=== PATIENT | male | born 1945 | race Caucasian/White ===

== ENCOUNTER 2018-03-23 09:50 | Emergency (ER) | payer MEDICARE, OTHER ==
[~2018-03-23] VITALS: Ht 180.3 cm; Wt 100.0 kg
[2018-03-23] MEDS ORDERED: morphine 4 MG/ML inj SYRINge IV ONE (10:45)
[2018-03-23] MEDS ORDERED: ondansetron/PF 4mg/2ml inj IV ONE ×2 (10:45)
[2018-03-23 10:57] LABS: BASOPHILS # (AUTO) 0.1 X10'3 (0-0.2); BASOPHILS % (AUTO) 0.9 % (0-1); EOSINOPHILS # (AUTO) 0.5 X10'3 (0-0.9); HEMATOCRIT 41.6 % (42.0-52.0); HEMOGLOBIN 14.4 g/dl (14.0-17.9); LYMPHOCYTES # (AUTO) 1.5 X10'3 (1.1-4.8); LYMPHOCYTES % (AUTO) 23.1 % (21-51); MEAN CORPUSCULAR HGB CONC 34.5 % (33.0-36.5); MEAN CORPUSCULAR VOLUME 92.8 FL (78-98); MEAN PLATELET VOLUME 8.1 FL (7.4-10.4); MONOCYTES # (AUTO) 0.8 X10'3 (0-0.9); MONOCYTES % (AUTO) 11.4 % (2-12); NEUTROPHILS # (AUTO) 3.8 X10'3 (1.8-7.7); NEUTROPHILS % (AUTO) 57.6 % (42-75); PLATELET COUNT 216 X10'3 (140-440); RED BLOOD COUNT 4.49 X10'6 (4.70-6.10); RED CELL DISTRIBUTION WIDTH 13.9 % (11.5-14.5); WHITE BLOOD COUNT 6.6 X10'3 (4.5-11.0)
[2018-03-23 11:08] LABS: ALANINE AMINOTRANSFERASE 49 U/L (12-78); ALBUMIN 4.1 G/DL (3.4-5.0); ALBUMIN/GLOBULIN RATIO 1.2 (1.1-1.5); ALKALINE PHOSPHATASE 62 IU/L (46-116); ANION GAP 13 (8-16); ASPARTATE AMINO TRANSFERASE 34 U/L (10-37); BILIRUBIN,TOTAL 0.5 MG/DL (0.1-1.0); BLOOD UREA NITROGEN 18 MG/DL (7-18); BUN/CREATININE RATIO 22.2 (5.4-32.0); CALCIUM 8.9 MG/DL (8.5-10.1); CHLORIDE 99 MMOL/L (99-107); CREATININE 0.81 MG/DL (0.60-1.10); GLUCOSE 153 MG/DL (70-104); LIPASE 157 U/L (73-393); POTASSIUM 4.3 MMOL/L (3.5-5.1); SODIUM 135 MMOL/L (135-145); TOTAL CARBON DIOXIDE 23.2 MMOL/L (24-32); TOTAL PROTEIN 7.6 G/DL (6.4-8.2); eGFR > 90 ML/MIN
[2018-03-23 11:17] VITALS: BP 137/90
[2018-03-23 11:18] LABS: CLARITY,URINE CLEAR (Clear); COLOR,URINE YELLOW (Yellow); GLUCOSE, URINE NEGATIVE (Neg); KETONES,URINE TRACE mg/dl (Neg); LEUKOCYTE ESTERASE ,URINE NEGATIVE (Neg); NITRITES, URINE NEGATIVE (Neg); OCCULT BLOOD,URINE NEGATIVE (Neg); PH,URINE 6.5 (4.8-8.0); PROTEIN,URINE NEGATIVE (Neg); UROBILINOGEN,URINE 0.2 E.U/dL (0.2-1.0)
[2018-03-23 11:27] LABS: UA COLLECTION TYPE CLN CATCH MIDSTREAM
[2018-03-23] MEDS ORDERED: ALBU8HFA PO (11:33)
[2018-03-23] MEDS ORDERED: DOXY100C43 PO (11:33)
[2018-03-23] MEDS ORDERED: HYDR-3965 PO (11:33)
[2018-03-23] MEDS ORDERED: ONDA4TAB6 PO (11:33)
[2018-03-23] MEDS ORDERED: PRED20TA PO (11:33)
== END 2018-03-23 11:55 | disposition home or self-care (01) ==
LOC: ER 09:50
DX: J20.9 Acute bronchitis, unspecified (principal); M94.0 Chondrocostal junction syndrome [Tietze]; J44.9 Chronic obstructive pulmonary disease, unspecified; I10 Essential (primary) hypertension; E11.9 Type 2 diabetes mellitus without complications; Z98.890 Other specified postprocedural states; Z88.0 Allergy status to penicillin; Z88.2 Allergy status to sulfonamides; Z79.899 Other long term (current) drug therapy
CPT/HCPCS: 36415; 71046; 74176; 80053; 81003; 83690; 84484; 85025; 93005; 96374; 96375; 99284; J2270; J2405

== ENCOUNTER 2018-10-04 06:47 | Inpatient (IN) | payer MEDICARE, OTHER ==
[~2018-10-04] VITALS: Ht 182.9 cm; Wt 102.7 kg
[~2018-10-04 06:47] MED LIST: ONDA4TAB6 PO
[2018-10-04] MEDS ORDERED: normal saline 1000ML IV soln IV ONE (07:10)
[2018-10-04] MEDS ORDERED: ipratropium/albuterol 3ml nebule NEB ONE (07:50)
[2018-10-04] MEDS ORDERED: albuterol 2.5 MG/3 ML nebule NEB ONE (07:50)
[2018-10-04 08:02] LABS: BASOPHILS % (AUTO) 0.4 % (0-1); EOSINOPHILS % (AUTO) 0.5 % (0-6); HEMATOCRIT 43.8 % (42.0-52.0); HEMOGLOBIN 15.1 g/dl (14.0-17.9); LYMPHOCYTES # (AUTO) 1.1 X10'3 (1.1-4.8); MEAN CORPUSCULAR HEMOGLOBIN 33.1 PG (27.0-31.0); MEAN CORPUSCULAR HGB CONC 34.6 g/dL (33.0-36.5); MEAN CORPUSCULAR VOLUME 95.7 FL (78-98); MEAN PLATELET VOLUME 8.5 FL (7.4-10.4); MONOCYTES # (AUTO) 0.8 X10'3 (0-0.9); MONOCYTES % (AUTO) 8.6 % (2-12); NEUTROPHILS # (AUTO) 7.7 X10'3 (1.8-7.7); NEUTROPHILS % (AUTO) 79.5 % (42-75); PLATELET COUNT 232 X10'3 (140-440); RED BLOOD COUNT 4.58 X10'6 (4.70-6.10); RED CELL DISTRIBUTION WIDTH 13.3 % (11.5-14.5); WHITE BLOOD COUNT 9.7 X10'3 (4.5-11.0)
[2018-10-04 08:10] LABS: ALANINE AMINOTRANSFERASE 38 U/L (12-78); ALBUMIN 3.8 G/DL (3.4-5.0); ALBUMIN/GLOBULIN RATIO 0.8 (1.1-1.5); ALKALINE PHOSPHATASE 64 IU/L (46-116); ANION GAP 17 (8-16); ASPARTATE AMINO TRANSFERASE 21 U/L (10-37); BILIRUBIN,TOTAL 0.8 MG/DL (0.1-1.0); BLOOD UREA NITROGEN 12 MG/DL (7-18); BUN/CREATININE RATIO 10.9 (5.4-32.0); CALCIUM 9.2 MG/DL (8.5-10.1); CHLORIDE 94 MMOL/L (99-107); GLUCOSE 179 MG/DL (70-104); SODIUM 132 MMOL/L (135-145); TOTAL CARBON DIOXIDE 21.1 MMOL/L (24-32); TOTAL PROTEIN 8.3 G/DL (6.4-8.2); eGFR 66 ML/MIN
[2018-10-04 09:06] LABS: CLARITY,URINE SLIGHTLY CLOUDY (Clear); COLOR,URINE YELLOW (Yellow); GLUCOSE, URINE NEGATIVE (Neg); KETONES,URINE TRACE mg/dl (Neg); LEUKOCYTE ESTERASE ,URINE NEGATIVE (Neg); NITRITES, URINE NEGATIVE (Neg); OCCULT BLOOD,URINE NEGATIVE (Neg); PH,URINE 5.5 (4.8-8.0); PROTEIN,URINE 30 mg/dl (Neg); UROBILINOGEN,URINE 0.2 E.U/dL (0.2-1.0)
[2018-10-04 09:09] LABS: UA COLLECTION TYPE URINAL
[2018-10-04] MEDS ORDERED: levoFLOXACIN-Levaquin 750MG/D5 150 ML IV ONE (09:15)
[2018-10-04] MEDS ORDERED: HYDROcodone/acetaminophen 10/325mg tab PO PRN (09:20)
[2018-10-04] MEDS ORDERED: bisacodyl 10mg suppository rectal RC PRN (09:20)
[2018-10-04] MEDS ORDERED: ondansetron/PF 4mg/2ml inj IV PRN (09:20)
[2018-10-04] MEDS ORDERED: acetaminophen 650mg rectal suppository RC PRN (09:20)
[2018-10-04] MEDS ORDERED: magnesium 4gm in 100ml NS 100 ML IV PRN (09:20)
[2018-10-04] MEDS ORDERED: magnesium hydroxide 30ml (MOM) UD suspension PO PRN (09:20)
[2018-10-04] MEDS ORDERED: ipratropium/albuterol 3ml nebule NEB PRN (09:20)
[2018-10-04] MEDS ORDERED: potassium Cl 20 mEq SR tablet PO PRN ×2 (09:20)
[2018-10-04] MEDS ORDERED: acetaminophen 325mg tablet PO PRN ×2 (09:20)
[2018-10-04] MEDS ORDERED: magnesium Cl slow-release 64mg tablet PO PRN (09:20)
[2018-10-04] MEDS ORDERED: potassium CL 10mEq/100ml bag 100 ML IV PRN ×2 (09:20)
[2018-10-04] MEDS ORDERED: HYDROcodone/acetaminophen 5mg/325mg tablet PO PRN (09:20)
[2018-10-04] MEDS ORDERED: magnesium 2GM in 50ml NS 50 ML IV PRN (09:20)
[2018-10-04] MEDS ORDERED: morphine 2 MG/ML inj. syringe IV PRN ×2 (09:20)
[2018-10-04] MEDS: K and/or MAG REPLACEMENT MC SCH (09:20)
[2018-10-04] MEDS ORDERED: diphenhydrAMINE 25mg capsule PO PRN (09:20)
[2018-10-04] MEDS ORDERED: mag hydrox/Alum hydrox/simeth 30ml oral suspension PO PRN (09:20)
[2018-10-04 09:30] LABS: BACTERIA,URINE NONE SEEN /HPF (Neg); HYALINE CASTS 0-3 /LPF (NEGATIVE); MUCUS STRANDS MANY /LPF (Neg); RBC,URINE NONE SEEN /HPF (0-2); RENAL CELLS, URINE FEW /HPF; SQUAMOUS EPITHELIAL CELL,UR FEW /LPF (FEW); TRANSITIONAL EPI CELLS,URINE FEW /HPF; WBC,URINE 0-4 /HPF (0-4)
[2018-10-04 09:31] LABS: COARSE GRANULAR CAST 0-3 /LPF (NEGATIVE); FINE GRANULAR CAST 0-3 /LPF (NEGATIVE)
--- NOTE | 2018-10-04 09:35 | NUR ---
MD AWARE OF OCCASSIONAL PVC AND WIDENING OF THE QRS WAVE.
[2018-10-04 09:52] LABS: HEMOGLOBIN A1C 6.6 % (4.5-6.2)
[2018-10-04] MEDS: normal saline 1000ml 1,000 ML IV SCH ×2 (10:04→19:42)
[2018-10-04] MEDS ORDERED: iohexol 350MG/ML 100ml bottle IV ONE (10:16)
--- NOTE | 2018-10-04 10:46 | NUR ---
Patient in room 349 B. I have received report from Sara, ED RN and had the opportunity to ask questions and assume patient care.
[2018-10-04] MEDS ORDERED: methylPREDNISolone sod succ 125mg/2ml vial IV ONE (11:10)
[2018-10-04 12:13] VITALS: BP 165/93
[2018-10-04] MEDS ORDERED: LORA0.5T PO (14:09)
[2018-10-04] MEDS ORDERED: LISI1TAB28 PO (14:09)
[2018-10-04] MEDS ORDERED: ROSU40TA22 PO (14:09)
[2018-10-04] MEDS ORDERED: METF-438 PO (14:11)
[2018-10-04] MEDS ORDERED: AMLO2.5T5 PO (14:11)
[2018-10-04] MEDS ORDERED: FLUT1BLS4 INH (14:11)
[2018-10-04] MEDS ORDERED: ALBU8.5H8 INH (14:15)
[2018-10-04] MEDS ORDERED: EXEN2AUT SQ (14:15)
[2018-10-04] MEDS ORDERED: UBID100C16 PO (14:16)
[2018-10-04] MEDS ORDERED: [UNRECOGNIZED DRUG - CODE] PO (14:17)
--- NOTE | 2018-10-04 18:29 | NUR ---
Problems reprioritized. Patient report given, questions answered & plan of care reviewed with Danielle Santos RN.
--- NOTE | 2018-10-04 18:30 | NUR ---
Patient in room [facility] 349. I have received report from MAX HEDRICK and had the opportunity to ask questions and assume patient care.
[2018-10-04 20:00] VITALS: BP 132/66
[2018-10-04] MEDS: lactobacillus rhamnosus 10,000 MMU CELLS/CAPSULE PO SCH (20:28)
[2018-10-04] MEDS: heparin, porcine 5000 units/ml vial SQ SCH (20:30)
[2018-10-04] MEDS ORDERED: temazepam 15mg capsule PO PRN (21:00)
[2018-10-04] MEDS ORDERED: glucagon, human recombinant 1mg kit SUBCUT PRN (21:40)
[2018-10-04] MEDS ORDERED: dextrose 50%-water 50ml dispensing syringe IV PRN ×2 (21:40)
[2018-10-04] MEDS ORDERED: dextrose ORAL solution 15 GM/59 ML bottle PO PRN ×2 (21:40)
[2018-10-04] MEDS ORDERED: MESSAGE TO PHARMACY PO ONE (21:40)
[2018-10-04] MEDS ORDERED: insulin glargine (Lantus) pen - multi-dose SQ SCH (22:00)
[2018-10-04] MEDS: insulin Lispro (HumaLOG) vial - multi-dose SQ SCH (22:33)
[2018-10-04] MEDS ORDERED: LORazepam 0.5 MG tablet PO PRN (23:15)
[2018-10-04] MEDS ORDERED: atorvastatin 10mg tablet PO SCH ×2 (23:15→23:18)
[2018-10-05] VITALS: BP 131/87
[2018-10-05] MEDS ORDERED: albuterol 2.5 MG/3 ML nebule NEB PRN (02:00)
[2018-10-05] MEDS: normal saline 1000ml 1,000 ML IV SCH (05:19)
[2018-10-05 05:46] LABS: BASOPHILS % (AUTO) 0.1 % (0-1); EOSINOPHILS % (AUTO) 0 % (0-6); HEMATOCRIT 39.4 % (42.0-52.0); HEMOGLOBIN 13.5 g/dl (14.0-17.9); LYMPHOCYTES # (AUTO) 0.6 X10'3 (1.1-4.8); LYMPHOCYTES % (AUTO) 10.4 % (21-51); MEAN CORPUSCULAR HEMOGLOBIN 32.3 PG (27.0-31.0); MEAN CORPUSCULAR HGB CONC 34.2 g/dL (33.0-36.5); MEAN CORPUSCULAR VOLUME 94.4 FL (78-98); MEAN PLATELET VOLUME 8.4 FL (7.4-10.4); MONOCYTES # (AUTO) 0.5 X10'3 (0-0.9); MONOCYTES % (AUTO) 8.8 % (2-12); NEUTROPHILS # (AUTO) 4.3 X10'3 (1.8-7.7); NEUTROPHILS % (AUTO) 80.7 % (42-75); PLATELET COUNT 206 X10'3 (140-440); RED BLOOD COUNT 4.17 X10'6 (4.70-6.10); RED CELL DISTRIBUTION WIDTH 13.6 % (11.5-14.5); WHITE BLOOD COUNT 5.4 X10'3 (4.5-11.0)
[2018-10-05 06:10] LABS: ALANINE AMINOTRANSFERASE 30 U/L (12-78); ALBUMIN 3.1 G/DL (3.4-5.0); ALBUMIN/GLOBULIN RATIO 0.8 (1.1-1.5); ALKALINE PHOSPHATASE 51 IU/L (46-116); ANION GAP 10 (8-16); ASPARTATE AMINO TRANSFERASE 21 U/L (10-37); BILIRUBIN,TOTAL 0.4 MG/DL (0.1-1.0); BLOOD UREA NITROGEN 11 MG/DL (7-18); BUN/CREATININE RATIO 12.1 (5.4-32.0); CALCIUM 8.1 MG/DL (8.5-10.1); CHLORIDE 102 MMOL/L (99-107); CHOLESTEROL 101 MG/DL (0-200); CREATININE 0.91 MG/DL (0.60-1.10); GLUCOSE 184 MG/DL (70-104); HDL CHOLESTEROL 50 MG/DL (35-60); LDL CHOLESTEROL 41 MG/DL (50-100); MAGNESIUM 1.7 MG/DL (1.5-2.4); PHOSPHORUS 2.2 MG/DL (2.3-4.5); POTASSIUM 3.8 MMOL/L (3.5-5.1); SODIUM 136 MMOL/L (135-145); TOTAL CARBON DIOXIDE 24.2 MMOL/L (24-32); TOTAL PROTEIN 7.2 G/DL (6.4-8.2); TRIGLYCERIDES 61 MG/DL (20-135); eGFR 82 ML/MIN
--- NOTE | 2018-10-05 06:30 | NUR ---
Problems reprioritized. Patient report given, questions answered & plan of care reviewed with MAX HEDRICK.
[2018-10-05 07:00] VITALS: BP 140/84
[2018-10-05] MEDS: K and/or MAG REPLACEMENT MC SCH (07:05)
--- NOTE | 2018-10-05 07:30 | NUR ---
Returned from [facility] and went into the room while [facility] nurse was finishing med pass for this patient. Patient was stating that he was confused as to why we were giving him Atrovastatin instead of his normal cholesterol medication. Patient was informed that the medication is in the same family but that Atrovastatin is what we stock here. Patient said "okay whatever, I just don't want to take something that is a crappy version of what I take." Patient also refused the Heparin SQ because he said that he is up and moving in his room and he doesn't need it. Patient was also refusing to take insulin because he felt we are pumping him full of medications that he doesn't need. Patient was educated by myself and the [facility] nurse about our diabetic protocol and how it works. He was educated about the fact that we watch his sugars and the amount of carbs that he eat and base how much insulin that we give him on that. Patient said no to insulin. Patient was told that he is more than welcome to refuse medications and was also educated on the risks of having high blood glucose. Patient stated that he understood. About 10 minutes later patient hit his call light and upon asking what he needed. Patient stated that he had an epiphany and would like to take his insulin now. Patient was covered for his blood glucose.
--- NOTE | 2018-10-05 07:50 | NUR ---
Discussed with patient about ambulation and the importance of being up and moving especially with pneumonia. Patient stated that he is moving around room just fine but refuses to walk around in the unit because, "there are way too many germs in the hospital, I am not going to walk around out there just waiting to catch a worse germ." Patient also stated that he refuses to use our toilet. I discussed with patient that we sanitize the rooms and restrooms. Patient stated, "I don't care how much you clean these rooms, I am not going to use that dirty toilet". I asked the patient what he would like to do in the event of having a bowel movement. Patient stated, "I will hold it! I am not pooping here!". I expressed with the patient that since he has not had a bowel movement since the 01 of October that more than likely we are going to want to ensure that you are able to have one. Patient stated, "that's not true, I didn't have surgery. You can't lie to me". patient was informed that we can discuss with MD.
[2018-10-05] MEDS ORDERED: lisinopril 20mg tablet PO SCH (08:00)
[2018-10-05] MEDS ORDERED: VILANTER IH SCH (08:00)
[2018-10-05] MEDS ORDERED: amLODIPine 2.5mg tablet PO SCH (08:00)
[2018-10-05] MEDS ORDERED: multivitamins, therapeutics tablet PO SCH (08:00)
[2018-10-05] MEDS ORDERED: non-formulary drug (Ubidecarenone (Coq-10) 300 MG) PO SCH (08:00)
[2018-10-05] MEDS ORDERED: FLUTICASONE IH SCH (08:00)
[2018-10-05] MEDS ORDERED: levoFLOXACIN-Levaquin 750MG/D5 150 ML IV SCH (08:00)
[2018-10-05] MEDS: heparin, porcine 5000 units/ml vial SQ SCH (08:00)
[2018-10-05] MEDS ORDERED: UMECLIDIN IH SCH (08:00)
[2018-10-05] MEDS: lactobacillus rhamnosus 10,000 MMU CELLS/CAPSULE PO SCH (08:23)
[2018-10-05] MEDS: insulin Lispro (HumaLOG) vial - multi-dose SQ SCH (08:40)
--- NOTE | 2018-10-05 09:34 | NUR ---
DM consult: Patient's A1c is 6.6; DM ed not warranted at this time. Will continue to follow. Addendum: 10/05/18 at [address] Amended: Links added.
[2018-10-05 11:00] VITALS: BP 121/83
[2018-10-05] MEDS ORDERED: LEVO750T46 PO (12:13)
--- NOTE | 2018-10-05 12:52 | NUR ---
Patient discharge home. Patient left with spouse and taken from unit via wheelchair with x1 staff. Patient alert, oriented and in no apparent distress at time of discharge. Patient PIV removed with cannula intact. Prescription for abx was called into [facility] on [facility] and patient plans on picking up the med on his way home. Patient took all belongings with him. Patient stated an understanding of the discharge instructions.
[2018-10-05] MEDS ORDERED: insulin glargine (Lantus) pen - multi-dose SQ SCH (21:00)
--- NOTE | 2018-10-09 10:16 | NUR ---
Patient called asking for the RN Genevieve regarding his discharge medication. Informed patient that she is not here today. He stated that he was instructed by "the nurse or the doctor, but I can't remember who told me to not take the levofloxacin with my cholesterol pill. Can you enlighten me with this?" Let patient know that I would have to look up if there was any notes regarding his discharge instructions stating reason why not to take cholesterol med and antibiotic. Patient agreed and was put on hold. research and insights executiveApryl notified about patient calling and his question. Apryl, research and insights executive and I were not able to find information as to why patient is to not cholesterol pill and antibiotic together. Instructed patient to call his pharmacist or
== END 2018-10-05 12:58 | disposition home or self-care (01) | DRG 193 ==
LOC: ER 06:48 → SUR 3N 11:52 → CMPBEDREQ 19:45
PROVIDERS: ADMIT Family Medicine; ATTEND Family Medicine
PROC: B32T1ZZ Computerized Tomography (CT Scan) of Left Pulmonary Artery using Low Osmolar Contrast (ICD-10-PCS; principal; 2018-10-04)
PROC: B3201ZZ Computerized Tomography (CT Scan) of Thoracic Aorta using Low Osmolar Contrast (ICD-10-PCS; 2018-10-04)
PROC: B32S1ZZ Computerized Tomography (CT Scan) of Right Pulmonary Artery using Low Osmolar Contrast (ICD-10-PCS; 2018-10-04)
DX: J18.9 Pneumonia, unspecified organism (principal); J96.01 Acute respiratory failure with hypoxia; J44.1 Chronic obstructive pulmonary disease with (acute) exacerbation; J44.0 Chronic obstructive pulmonary disease with (acute) lower respiratory infection; E11.9 Type 2 diabetes mellitus without complications; E78.5 Hyperlipidemia, unspecified; I10 Essential (primary) hypertension; Z80.3 Family history of malignant neoplasm of breast; Z82.5 Family history of asthma and other chronic lower respiratory diseases; Z88.0 Allergy status to penicillin; Z88.2 Allergy status to sulfonamides; Z87.891 Personal history of nicotine dependence; Z79.899 Other long term (current) drug therapy
CPT/HCPCS: 36415; 71045; 71275; 80053; 80061; 81001; 82948; 83036; 83605; 83735; 84100; 84145; 85025; 87040; 87081; 94640; 94760; 96361; 96365; 96366; 97161; 97530; 99285; G0378; J1644; J1815; J1956; J2930; J7030; Q9967

== ENCOUNTER 2019-01-05 22:08 | Emergency (ER) | payer MEDICARE, OTHER ==
[~2019-01-05] VITALS: Ht 182.9 cm; Wt 93.6 kg
[~2019-01-05 22:08] MED LIST changes: +ALBU8.5H8 INH; +AMLO2.5T5 PO; +EXEN2AUT SQ; +FLUT1BLS4 INH; +LISI1TAB28 PO; +LORA0.5T PO; +METF-438 PO; -ONDA4TAB6 PO; +ROSU40TA22 PO; +UBID100C16 PO; +[UNRECOGNIZED DRUG - CODE] PO
[2019-01-05] MEDS ORDERED: thiamine 100mg/ml 2ml inj. IV ONE (22:25)
[2019-01-05] MEDS ORDERED: normal saline 1000ML IV soln IV ONE (22:25)
[2019-01-05] MEDS ORDERED: fentaNYL/PF 50MCG/1 ML 2ML syringe IV ONE (22:25)
[2019-01-05] MEDS ORDERED: folic acid 1mg/0.2ml inj IV ONE (22:25)
[2019-01-05 22:43] LABS: BASOPHILS # (AUTO) 0.2 X10'3 (0-0.2); BASOPHILS % (AUTO) 1.5 % (0-1); EOSINOPHILS # (AUTO) 0.4 X10'3 (0-0.9); EOSINOPHILS % (AUTO) 3.6 % (0-6); HEMATOCRIT 43.3 % (42.0-52.0); HEMOGLOBIN 14.8 g/dl (14.0-17.9); LYMPHOCYTES # (AUTO) 3.4 X10'3 (1.1-4.8); LYMPHOCYTES % (AUTO) 31.9 % (21-51); MEAN CORPUSCULAR HEMOGLOBIN 32.2 PG (27.0-31.0); MEAN CORPUSCULAR HGB CONC 34.3 g/dL (33.0-36.5); MEAN PLATELET VOLUME 7.7 FL (7.4-10.4); MONOCYTES # (AUTO) 1.1 X10'3 (0-0.9); MONOCYTES % (AUTO) 10.9 % (2-12); NEUTROPHILS # (AUTO) 5.5 X10'3 (1.8-7.7); NEUTROPHILS % (AUTO) 52.1 % (42-75); PLATELET COUNT 271 X10'3 (140-440); RED CELL DISTRIBUTION WIDTH 13.8 % (11.5-14.5); WHITE BLOOD COUNT 10.5 X10'3 (4.5-11.0)
[2019-01-05 22:54] LABS: ALANINE AMINOTRANSFERASE 56 U/L (12-78); ALBUMIN 4.1 G/DL (3.4-5.0); ALKALINE PHOSPHATASE 70 IU/L (46-116); ANION GAP 11 (8-16); ASPARTATE AMINO TRANSFERASE 34 U/L (10-37); BILIRUBIN,TOTAL 0.3 MG/DL (0.1-1.0); BLOOD UREA NITROGEN 14 MG/DL (7-18); BUN/CREATININE RATIO 16.9 (5.4-32.0); CHLORIDE 99 MMOL/L (99-107); CREATININE 0.83 MG/DL (0.60-1.10); ETHANOL 0.223 GM/DL (0.0-0.010); GLUCOSE 111 MG/DL (70-104); POTASSIUM 3.9 MMOL/L (3.5-5.1); SODIUM 136 MMOL/L (135-145); TOTAL CARBON DIOXIDE 25.6 MMOL/L (24-32); TOTAL PROTEIN 8.2 G/DL (6.4-8.2); eGFR > 90 ML/MIN
[2019-01-05 23:00] LABS: CALCIUM 9.7 MG/DL (8.5-10.1)
[2019-01-06 01:08] VITALS: BP 127/56
== END 2019-01-06 01:09 | disposition home or self-care (01) ==
LOC: ER 22:09
DX: S16.1XXA Strain of muscle, fascia and tendon at neck level, initial encounter (principal); S39.012A Strain of muscle, fascia and tendon of lower back, initial encounter; M25.571 Pain in right ankle and joints of right foot; F10.129 Alcohol abuse with intoxication, unspecified; E78.00 Pure hypercholesterolemia, unspecified; I10 Essential (primary) hypertension; J44.9 Chronic obstructive pulmonary disease, unspecified; E11.9 Type 2 diabetes mellitus without complications; Z98.890 Other specified postprocedural states; Z88.0 Allergy status to penicillin; Z88.2 Allergy status to sulfonamides; Z79.84 Long term (current) use of oral hypoglycemic drugs; Z79.899 Other long term (current) drug therapy; W18.2XXA Fall in (into) shower or empty bathtub, initial encounter; Y93.89 Activity, other specified; Y92.091 Bathroom in other non-institutional residence as the place of occurrence of the external cause; Y99.8 Other external cause status; Y90.0 Blood alcohol level of less than 20 mg/100 ml
CPT/HCPCS: 36415; 70450; 72125; 72128; 72131; 73610; 80053; 80320; 82948; 85025; 85610; 93005; 96374; 96375; 99284; J3010; J3411; J3490; J7030